=== PATIENT | female | born 1945 | race Caucasian/White ===

== ENCOUNTER 2019-10-20 12:51 | Outpatient (CLI) | payer MEDICARE, SELFPAY ==
--- NOTE | 2019-10-20 13:17 | ECHO_ITS ---
Patient Info Name: Nevin Fofana Age: 74 years : 1945 Gender: Female Ht: 58 in Wt: 215 lbs BSA: 2.06 m2 HR: 63 bpm BP: 143 / 73 mmHg Technical Quality: Fair Exam Date: 10/20/2019 1:37 PM Exam Location: [facility] Patient Status: Outpatient Admit Date: 10/20/2019 Staff Ordering Physician: Jerman Matos APRN Neurology Professor: Kirsten Gtz RDCS Attending Provider: Jerman Matos APRN Referring Physician: Carlo ESQUIVEL; Exam Type: CA echo doppler color flow Study Info Indications - sob Complete two-dimensional, color flow and Doppler transthoracic echocardiogram is performed. Summary 1. Left ventricular chamber dimension is normal. 2. Left ventricular systolic function is normal, estimated at 60-65%. 3. The left ventricular diastolic function is abnormal. 4. E/e' 19 is elevated. 5. Moderate right ventricular hypertrophy. 6. Left atrial chamber dimension is mildly enlarged. 7. No pulmonary hypertension, estimated pulmonary arterial systolic pressure is 27 mmHg. 8. There is small circumferential pericardial effusion. Left Ventricle E/e' 19 is elevated. Left ventricular chamber dimension is normal. Left ventricular systolic function is normal, estimated at 60-65%. The left ventricular diastolic function is abnormal. Right Ventricle Moderate right ventricular hypertrophy. Right ventricular chamber dimension is normal. Right ventricular systolic function is normal. Left Atria Left atrial chamber dimension is mildly enlarged. Right Atria Right atrial chamber dimension is normal. Aortic Valve The aortic valve is not well visualized. There is no aortic valve stenosis. There is no aortic valve regurgitation. Pulmonic Valve There is no pulmonic regurgitation. Mitral Valve There is no mitral valve stenosis. There is no mitral valve regurgitation. Tricuspid Valve There is no tricuspid valve regurgitation. No pulmonary hypertension, estimated pulmonary arterial systolic pressure is 27 mmHg. Pericardium/Pleural There is small circumferential pericardial effusion. Inferior Vena Cava Normal inferior vena cava with >50% collapse upon inspiration consistent with normal right atrial pressure, 5 mmHg. Aorta The aortic root size at the sinus of Valsalva is normal. Left Ventricular Outflow Tract Name Value Normal LVOT 2D LVOT Diameter 2.0 cm LVOT Doppler LVOT Peak Gradient 4 mmHg LVOT Mean Gradient 2 mmHg LVOT VTI 24 cm LVOT VTI/AV VTI Ratio 0.7 LVOT Stroke Volume 77 ml LVOT CO 13.3 l/min LVOT CI 6.5 l/min/m2 Pulmonic Valve Name Value Normal PV Doppler PV Peak Gradient
== END 2019-10-20 12:52 | disposition home or self-care (01) ==
PROVIDERS: PCP Internal Medicine; Visit Provider Nurse Practitioner
DX: I51.7 Cardiomegaly (principal); R06.02 Shortness of breath
CPT/HCPCS: 93306

== ENCOUNTER 2020-01-10 07:44 | Outpatient (CLI) | payer MEDICARE, SELFPAY ==
--- NOTE | 2020-01-10 09:20 | PCRCNOTE ---
PT. REFUSED 6 MINUTE WALK.
--- NOTE | 2020-01-14 11:59 | WPDPFTINT ---
PFT Interpretation PFT Interpretation: This PFT met all criteria for ATS standards and reproducibility FEV/FVC post bronchodilator 71% FEV1 72% or 1.01 liters FVC 69% or 1.42 liters TLC 77% or 2.75 liters RV 91% RV/TLC 49% DLCO 57% when adjusted for alveolar volume but not adjusted for hemoglobin Flow volume loops showed significant expiratory coving Impression: Moderate airflow obstruction with mild restriction and moderately reduced diffusion capacity. The restriction may be due to obesity. The obstruction most likely is due to COPD. Clinical correlation is advised.
== END 2020-01-10 07:45 | disposition home or self-care (01) ==
PROVIDERS: PCP Internal Medicine; Visit Provider Internal Medicine Critical Care Medicine
DX: R06.00 Dyspnea, unspecified (principal); R94.2 Abnormal results of pulmonary function studies
CPT/HCPCS: 94060; 94726; 94729

== ENCOUNTER 2020-01-16 03:07 | Outpatient (CLI) | payer MEDICARE, SELFPAY ==
[2020-01-16 19:47] LABS: SARS-CoV-2 RNA PCR Negative
== END 2020-01-16 03:08 | disposition home or self-care (01) ==
LOC: ANHCOVIDDT 03:07
PROVIDERS: PCP Internal Medicine; Visit Provider Internal Medicine Critical Care Medicine
DX: Z01.812 Encounter for preprocedural laboratory examination (principal); Z20.828 Contact with and (suspected) exposure to other viral communicable diseases
CPT/HCPCS: 87635; C9803; U0003

== ENCOUNTER 2020-01-18 08:09 | Outpatient (CLI) | payer MEDICARE, SELFPAY ==
--- NOTE | 2020-02-17 12:33 | WPDSLEEPSTUD ---
Sleep Study Date of Study: 01/18/20 Ordering Provider: Interpreting Physician: Sleep Study Type: Split Polysomnogram Height: 1.47 m Weight: 99.337 kg Body Mass Index: 45.8 Neck Circumference: 48.26 cm [place]: 7 Reason for Sleep Study patient has a diagnosis of obstructive sleep apnea and was prescribed CPAP therapy which she could not tolerate. Patient however continues to have significant daytime symptomatology and was referred for repeat evaluation. Sleep History Snoring, non-refreshing sleep, mild daytime sleepiness, daytime fatigue and tiredness. [facility] Past Medical History Medical History (Updated 12/29/19 @ 12:22 by ODALYS Mclaughlin) Chronic low back pain with bilateral sciatica ACUNA (dyspnea on exertion) History of smoking Postmenopausal Screening for breast cancer Screening for colon cancer Surgical History Surgical History History of colon surgery Family History Family History Mother Family history of Alzheimer's disease Family history of lymphoma Family history of seizure disorder Hypertension Family history of elevated blood lipids Acute myocardial infarction Family history of dementia Sibling Hypertension Family history of lymphoma Family history of lupus erythematosus Father Carcinoma of colon Social History Social History Smoking status: Former smoker Smoking end date: 03/01/94 Alcohol intake: never Medications Home Medications Medication Instructions Recorded Confirmed Type albuterol sulfate 90 mcg/actuation 1 inhalation INHALATION Q4H PRN 01/13/19 12/29/19 Rx aerosol inhaler #8.5 gm amlodipine 5 mg tablet 5 mg PO DAILY #90 tablet 10/23/19 12/29/19 Rx furosemide 40 mg tablet 80 mg PO QAM #60 tablet 11/02/19 12/29/19 Rx potassium chloride 20 mEq 20 meq PO DAILY #30 tablet 11/02/19 12/29/19 Rx tablet,extended release pravastatin 20 mg tablet See Rx Instructions .ROUTE 11/02/19 12/29/19 Rx .COMPLEX #90 tablet irbesartan 300 mg tablet 300 mg PO DAILY #90 tablet 12/01/19 12/29/19 Rx citalopram 20 mg tablet 20 mg PO DAILY #90 tablet 12/06/19 12/29/19 Rx levothyroxine 112 mcg tablet 112 mcg PO DAILY #90 tablet 01/10/20 Rx linagliptin 5 mg tablet 5 mg PO QAM #30 tablet 01/15/20 Rx tizanidine 4 mg tablet 4 mg PO TID PRN #90 tablet 01/29/20 Rx carvedilol 25 mg tablet 25 mg PO Q12H #180 tablet 02/05/20 Rx Sleep Procedure Patient underwent in lab polysomnographic evaluation using split night protocol. Sleep Architecture Diagnostic study - total recording time 200 minutes, total sleep time 127 minutes, sleep efficiency 63.3%. Sleep latency 39 minutes and there was no REM sleep. Awake after sleep onset 35 minutes. Stage N1 29.5%, N2 70.5% stage N3 and stage R 0%. Supine sleep 0%. Treatment study - total recording time 243 minutes, total sleep time 179 minutes, sleep efficiency 73.7%. Sleep latency 46 minutes, REM latency 45 minutes. awake after sleep onset 17 minutes. Stage N1 9.2%, N2 82.4%, N3 0% stage R 8 0.4%. Supine sleep 48.3%. Respiratory Analysis Diagnostic study patient had 4 obstructive apneas with index 1.9, 85 hypopneas -index 40.2, apnea-hypopnea index 42 - all events occurred in non-REM sleep and nonsupine sleep Treatment study - there were no apneas, 20 hypopneas occurred with index 6.7. Eleven hypopnea episodes occurred in REM sleep with index of 44, 8 occurred in non-REM sleep with index of 6.2. Except for 1 hypopnea, others. occurred in nonsupine sleep. Arousals Diagnostic study - total arousals 123, index 36.8. Sixty-eight spontaneous, 33 respiratory events, 22 limb movements. Treatment study - total arousals 37, index 9.1. Thirty-four spontaneous, 3 related to respiratory events. Periodic Limb Movements No periodic limb movem
[2020-02-17 13:06] VITALS: BMI 45.8
== END 2020-01-18 08:10 | disposition home or self-care (01) ==
LOC: ANHCSM 08:09
PROVIDERS: PCP Internal Medicine; Visit Provider Internal Medicine Critical Care Medicine
DX: G47.30 Sleep apnea, unspecified (principal)
CPT/HCPCS: 95811

== ENCOUNTER 2020-02-07 12:45 | Outpatient (CLI) | payer MEDICARE, SELFPAY ==
--- NOTE | ~2020-02-07 | DEXA_ITS ---
Bone Density Report Name: Nevin Fofana V Age: 74 Sex: Female Ethnicity: White Date of : 1945 Indication: postmenopausal; asthma or emphysema; hysterectomy; Referring Provider: Tonya Trotter Study: Bone densitometry was performed. Exam Date: February 07, 2020 Accession number: [id number] Bone Density: Region BMD T-score Z-score Classification AP Spine (L1-L4) 0.898 -1.4 1.0 Osteopenia Femoral Neck (Left) 0.535 -2.8 -0.8 Osteoporosis Total Hip (Left) 0.901 -0.3 1.4 Normal Total Hip Bilateral Avg 0.893 -0.4 1.3 Normal Femoral Neck (Right) 0.526 -2.9 -0.9 Osteoporosis Total Hip (Right) 0.884 -0.5 1.2 Normal World Health Organization criteria for BMD impression classify patients as: Normal (T-score at or above -1.0), Osteopenia (T-score between -1.0 and -2.5), or Osteoporosis (T-score at or below -2.5). 10-year Fracture Risk: FRAX not reported because: Some T-score for Spine Total or Hip Total or Femoral Neck at or below -2.5 Clinical Information Provided by Patient: Has used the following medications: Vitamin D Has the following medical conditions: Asthma or Emphysema, Hysterectomy Patient maximum height was 57.5 Menopause Age: 46 No regular weight bearing exercise Does not regularly consume dairy products Drinks caffeinated beverages Onset of menses at age 12 Number of children 2 Impression: The patient has osteoporosis, based on the Right Femoral Neck T-score. Discussion: INCREASED RISK OF FRACTURE. BONE DENSITY IS UNDESIRABLY LOW AT ONE OR MORE SKELETAL SITES, CONSISTENT WITH POSTMENOPAUSAL OSTEOPOROSIS. This patient's lowest T-score meets the World Health Organization's (WHO) criteria for osteoporosis at one or more sites (T-score -2.5 or below). In untreated patients, the risk of osteoporotic fracture increases approximately two-fold for each 1.0 SD decrease in T-score. Low bone density is not the only risk factor for fracture; also consider factors such as patient's age, frailty or poor health, risk of falling, risk of injury, previous osteoporotic fracture, family history of osteoporosis, cigarette smoking, low body weight, etc. Not everyone with low bone mineral density has osteoporosis; osteomalacia and other metabolic bone disorders should also be considered. Patients who have osteoporosis should be evaluated for specific diseases and conditions (secondary causes) that may cause or contribute to bone loss. The [place] [employer] Endocrinologists (AACE) and National Osteoporosis Foundation (NOF) recommend pharmacologic intervention for all postmenopausal women whose T-score is in this range. The patient should follow a healthful lifestyle (good nutrition with adequate calcium and vitamin D, and appropriate weight-bearing exercise). Follow-Up: Consider a repeat BMD and Vertebral Fra
--- NOTE | ~2020-02-07 | MM_ITS ---
EXAMINATION: MM screening adniel BI w yrn HISTORY: Screening TECHNIQUE: Craniocaudal and mediolateral oblique 3-D tomosynthesis images were obtained and synthetic 2-D images were generated. CAD analysis was submitted and interpreted. COMPARISON: 11/24/2012 BREAST PARENCHYMAL COMPOSITION: There are scattered areas of fibroglandular density. FINDINGS: There is no evidence of suspicious mass, calcification, or architectural distortion to sugg est malignancy in either breast. There has been no suspicious interval change. IMPRESSION: 1. No mammographic evidence of malignancy. 2. Recommend routine screening mammography in one year. BI-RADS Category 1: Negative Reviewed, dictated and finalized at location D. SCIENCE TECHNICIAN
== END 2020-02-07 12:46 | disposition home or self-care (01) ==
PROVIDERS: PCP Internal Medicine; Visit Provider Nurse Practitioner
DX: Z12.31 Encounter for screening mammogram for malignant neoplasm of breast (principal); Z78.0 Asymptomatic menopausal state; M81.0 Age-related osteoporosis without current pathological fracture
CPT/HCPCS: 77063; 77067; 77080

== ENCOUNTER 2020-07-01 14:13 | Outpatient (CLI) | payer MEDICARE, SELFPAY ==
--- NOTE | ~2020-07-01 | XR_ITS ---
EXAMINATION: XR lumbar spine 2-3V DATE: 07/01/2020 14:45 INDICATION: Lumbago and sciatica. TECHNIQUE: 3 views of lumbar spine were obtained. COMPARISON: None. FINDINGS: There is 3 mm anterolisthesis of L4 on L5 and L5 on S1. Vertebral body heights are normal. There is severely decreased disc height at L5-S1. There is severe facet joint osteoarthritis in lower lumbar spine. There are surgical clips in the abdomen. IMPRESSION: 1. Severe lower lumbar spondylosis. Reviewed, dictated and finalized at location A.
== END 2020-07-01 14:14 | disposition home or self-care (01) ==
PROVIDERS: PCP Internal Medicine; Visit Provider Internal Medicine
DX: M54.41 Lumbago with sciatica, right side (principal); M54.42 Lumbago with sciatica, left side; G89.29 Other chronic pain; M47.896 Other spondylosis, lumbar region
CPT/HCPCS: 72100

== ENCOUNTER 2020-07-08 14:15 | Outpatient (CLI) | payer MEDICARE, SELFPAY | END 2020-07-08 14:16 | disposition home or self-care (01) | PROVIDERS: PCP Internal Medicine; Visit Provider Internal Medicine | DX: R30.0 Dysuria (principal) | CPT/HCPCS: 87086; 87088 ==

== ENCOUNTER → 2020-07-10 14:08 | Outpatient (CLI) | payer MEDICARE, SELFPAY ==
--- NOTE | ~2020-07-10 | CT_ITS ---
EXAMINATION: CT brain wo con DATE: 07/10/2020 14:31 INDICATION: Right headaches. Numbness or tingling of hands. TECHNIQUE: Computed tomography (CT) of the head was performed without intravenous contrast. The mA wa s adjusted according to patient size. Iterative reconstruction technique was employed. Exam dose: 59 9.57 mGy-cm total exam DLP. COMPARISON: 10/18/2009 CT brain FINDINGS: Bilateral carotid siphon internal carotid artery calcifications. There is no evidence of in tracranial mass lesion or hemorrhage or cerebrovascular accident. No midline shift or mass effect eff ect. No subdural or epidural hematoma is evident. There is cerebral volume loss affecting particularly the frontal lobes. No fracture or bone destruction of the cranial vault. Mastoid air cells and included paranasal sinuse s are normally developed and aerated. IMPRESSION: Cerebral atherosclerosis No acute intracranial finding Reviewed, dictated and finalized at Location A. Reviewed, dictated and finalized at location A.
== END ==
PROVIDERS: PCP Internal Medicine; Visit Provider Internal Medicine
DX: R51.9 Headache, unspecified (principal); I67.2 Cerebral atherosclerosis
CPT/HCPCS: 70450

== ENCOUNTER 2020-07-11 12:21 | Outpatient (RCR) | payer MEDICARE, SELFPAY ==
--- NOTE | 2020-07-11 13:50 | PTOPEVAL ---
Thank you for referring Nevin Fofana to [facility].? The patient is scheduled to be seen for therapy?1 visit every other week for 4 visits due to high copay and ability to attend therapy. Please review, sign, date and return this plan of care KENNEDY. I agree with and certify that the following plan of care is medically necessary. Referring Physician Date Attending Provider: Zane Bernal, Diagnosis chronic back and neck pain Onset 20 yrs Subjective Information Pt c/o back and neck pain. She Query Text:As Reported By Patient/ has been having recent JOHNSON for Family 1 month. back: increased pain with standing and walking. She had a fall outside when she tripped over something. neck: right side neck pain, started with the JOHNSON 1 month ago She does not perform exercises. 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 She is able to stand with leaning onto support. She is limited to walking <50 ft at home. She reports being unsteady with her walking. Her activity level has declined over the past yr. Diagnostic Tests X-Rays For This Problem Yes: severe lumbar spondylosis Previous Treatments Previous Treatments For This Problem yes-1969 Pain Assessment Self Report Pain Assessment Lower Back Reported Pain Level 5 Pain Frequency Chronic Lowest Pain Intensity 5 Greatest Pain Intensity 10 Pain Aggravating Factors Exercise/Activity,Prolonged Position,Walking,Weight Bearing/Standing Pain Behaviors None Posterior Lateral Neck Reported Pain Level 4 Pain Description Dull,Spasms,Tightness Pain Frequency Continuous Lowest Pain Intensity 4 Greatest Pain Intensity 8 Pain Behaviors None Cervical and Lumbar ROM Cervical ROM Cervical Flexion (0-60) 60 Cervical Extension (0-70) 60 Cervical Lateral Flexion Right (0-50) 35 Cervical Lateral Flexion Left (0-50) 35 Cervical ROM Comments tightness but no pain Lumbar ROM Lumbar Flexion Active Ankle Query Text:Hands to: Lumbar Comments seated: able to reach ankles
--- NOTE | 2020-07-16 13:27 | PCPTNOTE ---
Patient called & cancelled scheduled appointment for 07/17/20 due to copay
--- NOTE | 2020-08-16 08:38 | PCPTNOTE ---
Admitting Provider: Attending Provider: Zane Bernal DO Patient:Nevin Fofana Date of :1945 Discharge Note Patient has not returned for any further treatments since 07/11/2020 due to unable to afford the copay. Therefore she will be discharged at this time. Patient?s initial visit was on 07/11/2020 12:30 and she had a total of 1 visits. The goals have been not met at this time Thank you for referring this patient to [facility]. Please review, sign, date and return this discharge summary KENNEDY. I have been updated about the patient's current status and I agree with discharge from the above service at this time. Referring Physician Date
== END 2020-08-19 08:51 | disposition home or self-care (01) ==
LOC: ANHPT 12:21
PROVIDERS: PCP Internal Medicine; Visit Provider Internal Medicine
DX: M54.41 Lumbago with sciatica, right side (principal); M54.42 Lumbago with sciatica, left side; M54.2 Cervicalgia; G89.29 Other chronic pain; R51.9 Headache, unspecified
CPT/HCPCS: 97014; 97110; 97162; G0283

== ENCOUNTER 2022-02-09 09:36 | Outpatient (CLI) | payer MEDICARE, SELFPAY ==
--- NOTE | ~2022-02-09 | MM_ITS ---
EXAMINATION: MM screening daniel BI w yrn HISTORY: Screening TECHNIQUE: Craniocaudal and mediolateral oblique 3-D tomosynthesis images were obtained and synthetic 2-D images were generated. CAD analysis was submitted and interpreted. COMPARISON: Comparison to multiple prior studies sequentially, with oldest reviewed study dated 11/24. BREAST PARENCHYMAL COMPOSITION: There are scattered areas of fibroglandular density. FINDINGS: There is no evidence of suspicious mass, calcification, or architectural distortion to sugg est malignancy in either breast. There has been no suspicious interval change. IMPRESSION: 1. No mammographic evidence of malignancy. 2. Recommend routine screening mammography in one year. BI-RADS Category 1: Negative Reviewed, dictated and finalized at location B. WASHER MACHINE
--- NOTE | ~2022-02-09 | DEXA_ITS ---
Bone Density Report Name: KOBE KING V Age: 76 Sex: Female Ethnicity: White Date of : 1945 Indication: postmenopausal; screening for osteoporosis; asthma or emphysema; hysterectomy; Referring Provider: MARYLOU MCCLELLAN Study: Bone densitometry was performed. Exam Date: February 09, 2022 Accession number: [id number] Bone Density: Region BMD T-score Z-score Classification AP Spine(L1-L4) 0.867 -1.6 0.8 Osteopenia Femoral Neck (Left) 0.515 -3.0 -0.9 Osteoporosis Total Hip (Left) 0.877 -0.5 1.3 Normal Femoral Neck (Right) 0.524 -2.9 -0.8 Osteoporosis Total Hip (Right) 0.808 -1.1 0.7 Osteopenia Total Hip Mean 0.843 -0.8 1.0 Normal World Health Organization criteria for BMD impression classify patients as: Normal (T-score at or above -1.0), Osteopenia (T-score between -1.0 and -2.5), or Osteoporosis (T-score at or below -2.5). 10-year Fracture Risk: FRAX not reported because: Some T-score for Spine Total or Hip Total or Femoral Neck at or below -2.5 Clinical Information Provided by Patient: Has used the following medications: HRT (i.e. estrogen/hormone therapy) Has the following medical conditions: Asthma or Emphysema, Hysterectomy Patient maximum height was 57.5 Menopause Age: 46 No regular weight bearing exercise Drinks caffeinated beverages Onset of menses at age 12 Number of children 2 Missed period for more than 6 months in a row Impression: The patient has osteoporosis, based on the Left Femoral Neck T-score. Discussion: INCREASED RISK OF FRACTURE. BONE DENSITY IS UNDESIRABLY LOW AT ONE OR MORE SKELETAL SITES, CONSISTENT WITH POSTMENOPAUSAL OSTEOPOROSIS. This patient's lowest T-score meets the World Health Organization's (WHO) criteria for osteoporosis at one or more sites (T-score -2.5 or below). In untreated patients, the risk of osteoporotic fracture increases approximately two-fold for each 1.0 SD decrease in T-score. Low bone density is not the only risk factor for fracture; also consider factors such as patient's age, frailty or poor health, risk of falling, risk of injury, previous osteoporotic fracture, family history of osteoporosis, cigarette smoking, low body weight, etc. Not everyone with low bone mineral density has osteoporosis; osteomalacia and other metabolic bone disorders should also be considered. Patients who have osteoporosis should be evaluated for specific diseases and conditions (secondary causes) that may cause or contribute to bone loss. The [place] [employer] of Clinical Endocrinologists (AACE) and National Osteoporosis Foundation (NOF) recommend pharmacologic intervention for all postmenopausal women whose T-score is in this range. The patient should follow a healthful lifestyle (good nutrition with adequate calcium and vitamin D, and appropria
== END 2022-02-09 09:37 | disposition home or self-care (01) ==
PROVIDERS: PCP Internal Medicine; Visit Provider Nurse Practitioner
DX: Z12.31 Encounter for screening mammogram for malignant neoplasm of breast (principal); Z78.0 Asymptomatic menopausal state; M85.89 Other specified disorders of bone density and structure, multiple sites; M81.0 Age-related osteoporosis without current pathological fracture
CPT/HCPCS: 77063; 77067; 77080

== ENCOUNTER 2022-08-26 11:06 | Outpatient (CLI) | payer MEDICARE, SELFPAY ==
--- NOTE | ~2022-08-26 | US_ITS ---
EXAMINATION: US renal BI DATE: 08/26/2022 12:16 INDICATION: Unspecified abdominal pain TECHNIQUE: Multiple grayscale and Doppler ultrasound images of the kidneys were obtained. COMPARISON: CT, 06/16/2016 FINDINGS: The right kidney measures 9.1 x 5.4 x 5.5 cm and contains cysts measuring up to 2.4 cm. The left kidney measures 10.1 x 5.7 x 5.6 cm. The kidneys demonstrate normal parenchymal echogenicity. T here is no hydronephrosis. The bladder is incompletely distended but unremarkable in appearance. IMPRESSION: 1. Mild atrophy of the kidneys. Reviewed, dictated and finalized at location []
== END 2022-08-26 11:07 | disposition home or self-care (01) ==
PROVIDERS: PCP Family Medicine; Visit Provider Nurse Practitioner
DX: R10.9 Unspecified abdominal pain (principal)
CPT/HCPCS: 76775

== ENCOUNTER 2023-06-28 14:08 | Outpatient (CLI) | payer MEDICARE, SELFPAY ==
--- NOTE | 2023-06-28 17:18 | WPDSIXMINUTE ---
Six Minute Walk Procedure Procedure Performed Pulmonary Stress Test (6 min walk) Six Minute Walk Six Minute Walk: This is a 6 minute walk test. The test was performed and interpreted in accordance with the 2014 ERS/ATS task force guidelines. Of note, the patient walked on room air with a walking aid. Findings: The patient's resting room air oxygen saturation measured by pulse oximetry was 96% and heart rate was 65 bpm. Patient ambulated for 305 meters and oxygen saturation remained 92 to 96%. Heart rate at the end of the study was 109 bpm. The patient did not qualify for supplemental oxygen at rest or with ambulation. There are no prior studies for comparison.
--- NOTE | 2023-06-28 17:21 | WPDPFTINT ---
PFT Procedure Performed PFT Procedure Performed Spirometry with Pre/Post Bronchodilator Plethysmography (Lung Vol) Diffusing Cap (DLCO) Flow Vol Loop PFT Interpretation This is a pulmonary function test with pre and post-bronchodilator spirometry, plethysmography and diffusing capacity. The test was performed and results interpreted in accordance with the 2019 and 2005 ATS/ERS Task Force guidelines respectively using the Global Lung Function Initiative-2012 reference equations. Patient demonstrated good effort and cooperation. Reproducibility criteria were met. The quality of the pre bronchodilator spirometry maneuver was Grade A and post bronchodilator spirometry maneuver was Grade A. Findings: Spirometry: There is decreased maximal expiratory airflow at all lung volumes with concave expiratory flow tracing. The contour the inspiratory flow tracing is normal. The pre bronchodilator FVC is 1.35 L, 65% predicted. The pre bronchodilator FEV1 is 0.96 L, 60% predicted. The pre bronchodilator FEV1: FVC ratio 72%. The post bronchodilator FVC is 1.41 L, representing a 5% increase. The post bronchodilator FEV1 is 1.01 L, representing a 4% increase. The post bronchodilator FEV1: FVC ratio 71%. Plethysmography: The total lung capacity is 2.53 L, 62% predicted. The functional residual capacity is 1.30 L, 56% predicted. The residual volume is 1.08 L, 54% predicted. Diffusing capacity: The diffusing capacity unadjusted for hemoglobin and carboxyhemoglobin is 10.3, 61% predicted. The diffusing capacity adjusted for alveolar volume is 4.85, 108% predicted. In comparison to previous pulmonary function testing on 01/10/2020 the post bronchodilator FVC is unchanged from 1.42 L to 1.41 L. The post bronchodilator FEV1 is unchanged from 1.01 L to 1.01 L. the total lung capacity is unchanged from 2.75 L to 2.53 L. The functional residual capacity is decreased from 1.61 L to 1.30 L. The residual volume has decreased from 1.34 L to 1.08 L. The diffusing capacity unadjusted for hemoglobin and carboxyhemoglobin is unchanged from 12.0 to 10.3. The diffusing capacity adjusted for alveolar volume is unchanged from 5.19 to 4.85. Impression: There is a combined obstructive and restrictive ventilatory abnormality. There are no guidelines to assign the severity of obstruction and restriction with a combined abnormality. In my opinion, given the mildly concave expiratory flow tracing, normal FEV1: FVC ratio and moderate restrictive abnormality, I would state there is a mild obstructive abnormality and a moderate restrictive abnormality resulting in a moderate decrease in the FEV1. There is no significant improvement after inhaling a single dose of albuterol. The diffusing capacity unadjusted for hemoglobin and carboxyhemoglobin is mildly decreased and normalizes when adjusted for alveolar volume. In comparison to previous pulmonary function testing on 01/10/2020 there has been a greater than anticipated time dependent decrease in the functional residual capacity and residual volume with no significant change in the FVC, FEV1, total lung capacity or diffusing capacity. Clinical correlation is recommended.
== END 2023-06-28 14:09 | disposition home or self-care (01) ==
PROVIDERS: PCP Nurse Practitioner; Visit Provider Physician Assistant
DX: J44.9 Chronic obstructive pulmonary disease, unspecified (principal); R94.2 Abnormal results of pulmonary function studies
CPT/HCPCS: 94060; 94618; 94726; 94729

== ENCOUNTER 2023-12-21 13:52 | Outpatient (CLI) | payer MEDICARE, SELFPAY ==
[2023-12-21 15:09] LABS: Alanine Aminotransferase 21 U/L (6-35); Albumin Level 4.5 g/dL (3.5-5.1); Alkaline Phosphatase 95 U/L (38-126); Anion Gap 12 mmol/L (4-12); Aspartate Amino Transferase 20 U/L (14-36); Bilirubin,Total 0.7 mg/dL (0.2-1.3); Blood Urea Nitrogen 18 mg/dL (7-17); Calcium 9.5 mg/dL (8.4-10.2); Carbon Dioxide 27 mmol/L (22-30); Chloride 101 mmol/L (98-107); Cholesterol 180 mg/dL (0-200); Estimated Glomerular Filt Rate 48; Glucose 103 mg/dL (65-110); HDL Direct 59 mg/dL; Potassium 4.3 mmol/L (3.4-5.0); Sodium 140 mmol/L (137-145); Triglycerides 176 mg/dL (<150)
[2023-12-21 15:20] LABS: LDL Cholesterol Direct 79 mg/dL
[2023-12-21 15:50] LABS: Hemoglobin A1C 5.7 % (<5.7)
[2023-12-21 16:10] LABS: Vitamin D 25 Hydroxy 49.2 ng/mL
== END 2023-12-21 13:53 | disposition home or self-care (01) ==
PROVIDERS: Internal Medicine; PCP Nurse Practitioner; Visit Provider Nurse Practitioner
DX: R00.1 Bradycardia, unspecified (principal); E78.5 Hyperlipidemia, unspecified; E55.9 Vitamin D deficiency, unspecified; E03.9 Hypothyroidism, unspecified; E11.9 Type 2 diabetes mellitus without complications
CPT/HCPCS: 36415; 80053; 80061; 82306; 83036; 84443; 93225; 93226

== ENCOUNTER 2024-11-10 14:46 | Outpatient (CLI) | payer MEDICARE, SELFPAY ==
--- NOTE | ~2024-11-10 | CT_ITS ---
EXAMINATION: CT lumbar spine wo con COMPARISON: None HISTORY: Lumbago with sciatica, right side TECHNIQUE: Axial images were obtained through the spine without IV contrast. Coronal, sagittal reconstruction images were obtained from the axial views. CT scan performed using dose optimization techniques including the following automated exposure control; adjustment of mA and/or kV; use of iterative reconstruction technique. Automatic exposure control was used to reduce radiation dose. Permanent radiation dose record is archived to PACS. FINDINGS: Moderate loss of vertebral height throughout. Grade 1 anterolisthesis of L4 on L5. No acute fracture is identified. Moderate loss of disc at L4-5 with severe loss of disc at L5-S1 with disc osteophyte complex and facet hypertrophy producing severe canal and foraminal stenosis, outpatient MRI is recommended Soft tissues demonstrate nonspecific stranding within the presacral space and completely evaluated. Impression: No acute abnormality. Reviewed, dictated and finalized at location A. Impression: No acute abnormality.
--- NOTE | ~2024-11-10 | CT_ITS ---
Nevin Fofana EXAMINATION: CT abdomen pelvis w con COMPARISON: None HISTORY: Unspecified abdominal pain x 1 month TECHNIQUE: Axial images were obtained through the abdomen, pelvis post administration of IV contrast. Oral contrast was also administered. Coronal reconstruction images were obtained from the axial views. CT scan performed using dose optimization techniques including the following automated exposure control; adjustment of mA and/or kV; use of iterative reconstruction technique. Automatic exposure control was used to reduce radiation dose. Permanent radiation dose record is archived to PACS. FINDINGS: CT abdomen: LUNG BASES: Lung bases demonstrate 6 mm micronodule right lower lobe medially. LIVER: Mild hepatic steatosis. Portal vein patent. SPLEEN: Punctate calcified splenic granulomas.. KIDNEYS: Right Kidney: Right kidney simple appearing renal cysts the largest 2 x 2 cm. Left Kidney: Unremarkable. No calculi. No hydronephrosis ADRENAL GLANDS: Unremarkable. PANCREAS: Unremarkable. GALLBLADDER/BILIARY: Post cholecystectomy. STOMACH AND ESOPHAGUS: The stomach is decompressed. BOWEL/MESENTERY: Left-sided ostomy with large parastomal fat-containing hernia. Ill-defined stranding in the presacral space. Postsurgical changes noted in the large bowel and small bowel. No colitis or diverticulitis. Appendix not identified. No dilated small bowel loops. Several small bowel loops appear adherent to the anterior abdominal wall. ADENOPATHY/RETROPERITONEUM: No lymphadenopathy. AORTA/VASCULATURE: Normal caliber aorta. FREE FLUID OR FREE AIR: None. CT pelvis: SOLID ORGANS/REPRODUCTIVE: Post hysterectomy. No adnexal mass. BLADDER: Within normal limits. OSSEOUS STRUCTURES: No acute osseous abnormality.No suspicious lesions. OVERLYING SOFT TISSUES: Fat-containing epigastric ventral hernia defect in the abdominal wall 1 cm.Thickening of the skin with underlying cellulitis suspected. IMPRESSION: 1. No acute intra-abdominal process. Incidental findings detailed above Reviewed, dictated and finalized at location A.
[2024-11-13 09:37] LABS: Estimated Glomerular Filt Rate 36
== END 2024-11-10 14:47 | disposition home or self-care (01) ==
LOC: MICIMG 14:47
PROVIDERS: PCP Nurse Practitioner; Visit Provider Nurse Practitioner
DX: R10.9 Unspecified abdominal pain (principal); M54.41 Lumbago with sciatica, right side; G89.29 Other chronic pain
CPT/HCPCS: 72131; 74177; Q9967

== ENCOUNTER 2024-12-13 15:50 | Outpatient (CLI) | payer MEDICARE, SELFPAY ==
--- NOTE | ~2024-12-13 | XR_ITS ---
XR lumbar spine 2-3V Indication: CHRONIC LBP WORSEN LAST 2 MONTHS ON LT SIDE Comparison: None Findings: Grade 1 anterolisthesis of L4 on L5, no fracture is identified. Severe loss of disc at L5-S1. Soft tissues unremarkable Impression: No acute abnormality. Reviewed, dictated and finalized at location P. Impression: No acute abnormality.
--- NOTE | ~2024-12-13 | XR_ITS ---
EXAMINATION: XR sacrum coccyx min 2V, 12/13/2024 16:00 CDT HISTORY: CHRONIC LBP WORSEN ON LT SIDE PAST 2 MONTHS COMPARISON: No comparisons available. Findings: No acute fracture or malalignment. No significant degenerative changes. Soft tissues unremarkable. Impression: No acute fracture or malalignment. Reviewed, dictated and finalized at location P. Impression: No acute fracture or malalignment.
== END 2024-12-13 15:51 | disposition home or self-care (01) ==
LOC: MICIMG 15:51
PROVIDERS: PCP Nurse Practitioner; Visit Provider Nurse Practitioner
DX: M53.3 Sacrococcygeal disorders, not elsewhere classified (principal); M54.50 Low back pain, unspecified; M43.16 Spondylolisthesis, lumbar region; M51.370 Other intervertebral disc degeneration, lumbosacral region with discogenic back pain only
CPT/HCPCS: 72100; 72220